=== PATIENT | male | born 1970 | race Caucasian/White ===

== ENCOUNTER 2017-06-19 16:42 | Emergency (ER) | payer BC ==
[2017-06-19 16:53] VITALS: BP 153/80
--- NOTE | 2017-06-19 17:13 | ED ---
Neck Pain - HPI Summary HPI Summary: 46 yr old male with pain in his neck, onset yesterday, radiates into left shoulder and also across his back into the right shoulder. The patient complains that his pain is 6/10. It is somewhat worse with movement. He denies SOB, denies dizziness, denies cp. He states he has borderline diabetes, and he has HTN. - History of Current Complaint Chief Complaint: UCCardiac Stated Complaint: NECK & LEFT SHOULDER PAIN Time Seen by Provider: 06/19/17 16:44 Pain Intensity: 6 - Allergies/Home Medications Allergies/Adverse Reactions: Allergies Allergy/AdvReac Type Severity Reaction Status Date / Time No Known Allergies Allergy Verified 08/08/15 07:58 Home Medications: Home Medications metFORMIN* [Glucophage 1000 MG TAB *] 1,000 mg PO 0800,1700 06/19/17 [History Confirmed 06/19/17] PMH/Surg Hx/FS Hx/Imm Hx Endocrine/Hematology History: Reports: Hx Diabetes - "borderline" Respiratory History: Reports: Hx Chronic Obstructive Pulmonary Disease (COPD) - emphysema - Surgical History Surgery Procedure, Year, and Place: vasectomy 1996 Infectious Disease History: No Infectious Disease History: Denies: Traveled Outside the [place] in Last 30 Days - Family History Known Family History: Positive: None - Social History Alcohol Use: Occasionally Alcohol Amount: last 09/11/13 Substance Use Type: Reports: None Smoking Status (MU): Heavy Every Day Tobacco Smoker Type: Cigars Amount Used/How Often: a couple a day Have You Smoked in the Last Year: Yes Review of Systems Constitutional: Negative Positive: Other - neck and shoulder pain All Other Systems Reviewed And Are Negative: Yes Physical Exam Triage Information Reviewed: Yes Vital Signs On Initial Exam: Initial Vitals Temp Pulse Resp BP Pulse Ox 96.5 F 97 16 153/80 98 06/19/17 16:45 06/19/17 16:45 06/19/17 16:45 06/19/17 16:45 06/19/17 16:45 Vital Signs Reviewed: Yes Appearance: Positive: Well-Appearing, Pain Distress Skin: Positive: Warm, Skin Color Reflects Adequate Perfusion Head/Face: Positive: Normal Head/Face Inspection Eyes: Positive: EOMI Neck: Positive: Other: - some tender ness left paraspinal and trapezius. some increased pain with looking toward adelina left Respiratory/Lung Sounds: Positive: Clear to Auscultation, Breath Sounds Present Cardiovascular: Positive: RRR. Negative: Murmur Abdomen Description: Positive: Nontender Musculoskeletal: Positive: Strength/ROM Intact Neurological: Positive: Sensory/Motor Intact, Alert, Oriented to Person Place, Time, CN Intact II-III Psychiatric: Positive: Normal - Kyra Coma Scale Best Eye Response: 4 - Spontaneous Best Motor Response: 6 - Obeys Commands Best Verbal Response: 5 - Oriented Coma Scale Total: 15 Diagnostics - Vital Signs Vital Signs Temp Pulse Resp BP Pulse Ox 06/19/17 16:45 96.5 F 97 16 153/80 98 - Laboratory Lab Statement: Any lab studies that have been ordered have been reviewed, and results considered in the medical decision making process. Neck Course/Dx - Course Course Of Treatment: 46 yr old who is in a bit of extremis due to pain, with grimacing. It may be his cervical spine, but could also be cardiac, vascular. I have recommended he go the ER by ambulance. He signed out AMA. - Diagnoses Provider Diagnoses: Neck pain, Shoulder pain, Hypertension Discharge - Discharge Plan Condition: Good Disposition: AGAINST MEDICAL ADVICE Referrals: No Primary Care Phys,NOPCP [Primary Care Provider] -
== END 2017-06-19 17:10 | disposition left against medical advice (07) ==
LOC: UCCORT 16:42
DX: M54.2 Cervicalgia (principal); M25.512 Pain in left shoulder; I10 Essential (primary) hypertension; Z53.20 Procedure and treatment not carried out because of patient's decision for unspecified reasons; R73.03 Prediabetes; Z79.84 Long term (current) use of oral hypoglycemic drugs; F17.290 Nicotine dependence, other tobacco product, uncomplicated
CPT/HCPCS: 93005; 99212; G0463

== ENCOUNTER 2019-08-12 10:06 | Emergency (ER) | payer BC ==
[2019-08-12 10:18] VITALS: BP 146/72
--- NOTE | 2019-08-12 10:21 | UC ---
Back Pain HPI - HPI Summary HPI Summary: 48yo male presenting with mid back pain that radiates to low back x1 week. Denies known trauma or injury. Describes pain as sharp pain on the right and left sides of his spine that is worse in the morning and decreases in severity over the course of the day. Denies decreased ROM and difficulty walking. Denies numbness and tingling. Denies swelling and bruising. Denies rash. Taking naproxen with some relief. Denies stretching and applying heat/ice. 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 - History of Current Complaint Chief Complaint: UCBackPain Stated Complaint: BACK PAIN Hx Obtained From: Patient Pain Intensity: 7 Pain Scale Used: 0-10 Numeric - Allergies/Home Medications Allergies/Adverse Reactions: Allergies Allergy/AdvReac Type Severity Reaction Status Date / Time No Known Allergies Allergy Verified 08/12/19 10:19 Home Medications: Home Medications Atorvastatin* [Lipitor 40 MG*] 40 mg PO 1700 08/08/15 [History Confirmed ] metFORMIN* [Glucophage 1000 MG TAB *] 1,000 mg PO 0800,1700 06/19/17 [History Confirmed 08/12/19] PMH/Surg Hx/FS Hx/Imm Hx Endocrine History: Diabetes, Dyslipidemia - Surgical History Surgical History: Yes Surgery Procedure, Year, and Place: vasectomy 1996 - Family History Known Family History: Positive: None - Social History Alcohol Use: Occasionally Alcohol Amount: last 09/11/13 Substance Use Type: None Smoking Status (MU): Former Smoker Type: Cigars Amount Used/How Often: a couple a day Have You Smoked in the Last Year: Yes When Did the Patient Quit Smoking/Using Tobacco: 12/2018 Household Exposure Type: Cigarettes - Immunization History Most Recent Influenza Vaccination: february 2015 Review of Systems All Other Systems Reviewed And Are Negative: No Constitutional: Positive: Negative Skin: Positive: Negative Respiratory: Positive: Negative Cardiovascular: Positive: Negative Gastrointestinal: Positive: Negative Genitourinary: Positive: Negative Neurovascular: Positive: Negative Musculoskeletal: Positive: Arthralgia - mid/lower back pain. Negative: Decreased ROM, Edema Neurological/Mental Status: Positive: Negative. Negative: Paresthesia, Numbness Physical Exam Triage Information Reviewed: Yes Appearance: Well-Appearing, No Pain Distress, Obese Vital Signs: Initial Vital Signs Temp 98 F 08/12/19 10:14 Pulse 82 08/12/19 10:14 Resp 16 08/12/19 10:14 BP 146/72 08/12/19 10:14 Pulse Ox 97 08/12/19 10:14 Vital Signs Reviewed: Yes Eyes: Positive: Conjunctiva Clear ENT: Positive: Hearing grossly normal Neck: Positive: Supple Respiratory: Positive: No respiratory distress, No accessory muscle use Cardiovascular Exam: Other - skin reflects adequate perfusion Musculoskeletal: Positive: Strength Intact, ROM Intact, Other: - mild TTP of left thoracic back muscles Neurological Exam: Other - sensation grossly intact Neurological: Positive: Alert Psychological: Positive: Age Appropriate Behavior Skin Exam: Normal - no erythema or ecchymosis Skin: Negative: Rashes Diagnostics - Radiology thoracic Radiology Interpretation Completed By: Radiologist Summary of Radiographic Findings: #. Normal thoracic kyphosis. Borderline levoscoliosis with 10 degrees Torres angle measured between T6 and T12. #. No cortical disruption or trabecular impaction to indicate vertebral body fracture. #. Preserved disc spaces throughout. Very mild vertebral endplate osteophytosis at the distal thoracic spine indicating early degenerative spondylosis.. #. Unremarkable paravertebral soft tissues. lumbar Radiology Interpretation Completed By: Radiologist Summary of Radiographic Findings: #. Normal lumbar lordosis. 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 Otherwise unremarkable disc spaces throughout. #. No cortical disruption or trabecular impaction to indicate vertebral fracture. No gross evidence for spondylolysis however oblique views would be more sensitive in this regard. #. Unremarkable paravertebral soft tissues. Back Pain Course/Dx - Course Course Of Treatment: Discussed radiograph findings with patient and likely muscle strain. Instructed to continue with rest, heat, naproxen, and stretching. Instructed to follow up with pcp or ortho if pain persists or worsens. Patient voiced understanding and agreed with treatment plan. - Differential Dx/Diagnosis Provider Diagnosis: Bilateral thoracic back pain, Lumbar back pain Discharge ED - Sign-Out/Discharge Documenting (check all that apply): Patient Departure All imaging exams completed and their final reports reviewed: Yes - Discharge Plan Condition: Stable Disposition: HOME Patient Education Materials: Back Pain (ED) Referrals: Lucian Levy MD [Primary Care Provider] - Christian Rodarte MD [Medical Doctor] - If Needed Additional Instructions: As discussed, your xrays revealed mild arthritis. It is likely your pain is caused by a muscle strain and should improve with time. Rest, apply heat, and take naproxen as directed to help alleviate pain symptoms. Refrain from strenuous physical activity until pain has fully resolved. Walking and mild stretching are encouraged. Follow up with your pcp or the orthopedic referral listed below if symptoms persist or worsen. - Billing Disposition and Condition Condition: STABLE Disposition: Home
== END 2019-08-12 11:46 | disposition home or self-care (01) ==
LOC: UCCORT 10:06
DX: M54.6 Pain in thoracic spine (principal); M54.5 Low back pain; E11.9 Type 2 diabetes mellitus without complications; Z79.84 Long term (current) use of oral hypoglycemic drugs; I10 Essential (primary) hypertension; Z79.899 Other long term (current) drug therapy; Z87.891 Personal history of nicotine dependence
CPT/HCPCS: 72070; 72100; 99211; G0463